=== PATIENT | male | born 1980 | race Hispanic/Latino ===

== ENCOUNTER 2018-08-05 16:45 | Emergency (ER) | payer OTHER, SELFPAY ==
[2018-08-05 17:33] LABS: #Eosinphils 0.1 thou/uL (0.0-0.7); #Lymphocytes 0.6 thou/uL (1.20-3.40); #Monocytes 0.7 thou/uL (0.11-0.59); #Neutrophils 9.6 thou/uL (1.40-6.50); %Basophils 0.4 % (0.0-1.0); %Eosinophils 0.6 % (0.0-10.0); %Lymphocytes 5.7 % (21.0-51.0); %Neutrophils 87.2 % (42.0-75.0); Hemoglobin 14.5 g/dL (14.0-18.0); Mean Corpuscular HGB CONC 33.4 g/dL (32.0-36.0); Mean Corpuscular Hemoglobin 30.7 pg (27.0-31.0); Mean Corpuscular Volume 91.8 fL (78.0-98.0); Mean Platelet Volume 6.5 fL (7.4-10.4); Platelet Count 315 thou/uL (130-400); RBC Distribution Width 12.9 % (11.5-14.5); Red Blood Cell (RBC) Count 4.74 mill/uL (4.70-6.10)
[2018-08-05] MEDS ORDERED: Lorazepam 2 MG/ML VIAL ONE (17:40)
--- NOTE | 2018-08-05 17:44 | CT ---
CT OF THE HEAD 08/05/18 COMPARISON: 03/02/14 HISTORY: Seizures, head injury. TECHNIQUE: Serial axial CT imaging at 5 mm intervals from vertex through skull base without contrast. FINDINGS: The imaged paranasal sinuses and mastoid air cells appear well aerated. No displaced calvarial fractu re noted. No intracranial hemorrhage, midline shift, mass effect, or ventricular enlargement. If there is clini gabriela concern for a seizure focus, followup brain MRI suggested. IMPRESSION: No acute findings. POS: [facility]
--- NOTE | 2018-08-05 17:46 | RAD ---
PORTABLE UPRIGHT FRONTAL CHEST RADIOGRAPH 08/05/18 COMPARISON: 03/02/14. HISTORY: Seizures, pain. FINDINGS: Old mid shaft left clavicle fracture. Lungs are clear. Heart and mediastinal contours are unremarkabl e. IMPRESSION: No acute findings. POS: [facility]
[2018-08-05 17:50] LABS: ALT (SGPT) 19 U/L (8-55); AST (SGOT) 28 U/L (5-34); Albumin 5.1 g/dL (3.5-5.0); Alkaline Phosphatase 94 U/L (40-150); Anion Gap 14 mmol/L (10-20); BUN (Urea Nitrogen) 11 mg/dL (8.9-20.6); Bilirubin, Total 0.4 mg/dL (0.2-1.2); Calc. Creatinine Clearance 0 mL/min (70-130); Calcium 10.2 mg/dL (7.8-10.44); Carbon Dioxide 24 mmol/L (22-29); Chloride 102 mmol/L (98-107); Estimated GFR-MDRD 68; Globulin 3.5 g/dL (2.4-3.5); Glucose 106 mg/dL (70-105); Magnesium 2.7 mg/dL (1.6-2.6); Potassium 4.1 mmol/L (3.5-5.1); Protein, Total 8.6 g/dL (6.0-8.3); Sodium 136 mmol/L (136-145)
[2018-08-05 18:39] LABS: CKMB 7.2 ng/mL (0-6.6); Troponin I Less than 0.010 ng/mL (< 0.028)
[2018-08-05] MEDS ORDERED: Adacel (T-DAP) 0.5 ML VIAL ONE (18:44)
[2018-08-05 18:47] LABS: Bilirubin Negative (Negative); Blood, Urine Trace (Negative); Clarity CLOUDY (Clear); Glucose, Urine (Dipstick) Negative (Negative); Leukocyte Negative (Negative); Nitrite Negative (Negative); Protein, Urine (Dipstick) Negative (Neg-Trace); Specific Gravity, Urine 1.016 (1.002-1.036); Urobilinogen 0.2 mg/dL (0.2-1.0); pH, Urine 5.5 (5.0-9.0)
[2018-08-05 18:49] LABS: Bacteria/HPF None Seen HPF (None Seen); Hyaline Casts/LPF 0-3 HYALINE CAST LPF (0-3 Hyaline); Pathc Cast-AUWi Flag 0.43 (0-2.49); RBC/HPF 0-3 HPF (0-3); Squamous Epithelial 0-3 HPF (0-3); WBC/HPF 0-3 HPF (0-3)
[2018-08-05 18:57] LABS: Amphetamine Not Detected (NotDetected); Barbiturates Screen Detected (NotDetected); Benzodiazepine Screen Not Detected (NotDetected); Cocaine Metabolite Screen Detected (NotDetected); Medtox Reader # READER 1; Methadone Not Detected (NotDetected); Methamphetamine Not Detected (NotDetected); Opiate Screen Not Detected (NotDetected); Phencyclidine (PCP) Not Detected (NotDetected); THC/Cannabinoid Screen Not Detected (NotDetected); Tricyclic Screen Not Detected (NotDetected)
[2018-08-05 18:58] LABS: Medtox Control Line Valid? VALID (VALID); Oxycodone Screen Not Detected (NotDetected)
[2018-08-05 21:47] LABS: CKMB 6.5 ng/mL (0-6.6); Troponin I Less than 0.010 ng/mL (< 0.028)
[2018-08-05] MEDS ORDERED: levETIRAcetam 500 MG TAB PO SCH (22:30)
== END 2018-08-05 22:40 ==
LOC: ERS 16:45
DX: G40.909 Epilepsy, unspecified, not intractable, without status epilepticus (principal); E03.9 Hypothyroidism, unspecified; F17.210 Nicotine dependence, cigarettes, uncomplicated
CPT/HCPCS: 36415; 70450; 71045; 80053; 80306; 81003; 81015; 82553; 83735; 84484; 85025; 90471; 90715; 93005; 96361; 96374; J2060

== ENCOUNTER 2019-07-29 00:54 | Inpatient (IN) | payer OTHER, SELFPAY ==
[2019-07-29 01:50] LABS: #Lymphocytes 0.6 thou/uL (1.20-3.40); #Monocytes 0.8 thou/uL (0.11-0.59); #Neutrophils 11.9 thou/uL (1.40-6.50); %Basophils 0.1 % (0.0-1.0); %Eosinophils 0.3 % (0.0-10.0); %Lymphocytes 4.5 % (21.0-51.0); %Monocytes 5.7 % (0.0-10.0); %Neutrophils 89.4 % (42.0-75.0); Hemoglobin 14.3 g/dL (14.0-18.0); Mean Corpuscular HGB CONC 34.2 g/dL (32.0-36.0); Mean Corpuscular Hemoglobin 30.9 pg (27.0-31.0); Mean Corpuscular Volume 90.4 fL (78.0-98.0); Mean Platelet Volume 6.6 fL (7.4-10.4); Platelet Count 313 thou/uL (130-400); RBC Distribution Width 12.6 % (11.5-14.5); Red Blood Cell (RBC) Count 4.62 mill/uL (4.70-6.10); White Blood Cell (WBC) Count 13.3 thou/uL (4.8-10.8)
[2019-07-29] MEDS ORDERED: cefTRIAXone\\ROCEPHIN 2 GM VIAL ONE (02:12)
[2019-07-29] MEDS ORDERED: Acetaminophen 500 MG TAB ONE (02:12)
[2019-07-29 02:13] LABS: ALT (SGPT) 23 U/L (8-55); AST (SGOT) 33 U/L (5-34); Albumin 5.1 g/dL (3.5-5.0); Alkaline Phosphatase 83 U/L (40-110); Anion Gap 13 mmol/L (10-20); BUN (Urea Nitrogen) 10 mg/dL (8.9-20.6); Bilirubin, Total 0.3 mg/dL (0.2-1.2); Calc. Creatinine Clearance 0 mL/min (70-130); Carbon Dioxide 24 mmol/L (22-29); Chloride 107 mmol/L (98-107); Estimated GFR-MDRD 77; Globulin 3.2 g/dL (2.4-3.5); Glucose 118 mg/dL (70-105); Potassium 4.3 mmol/L (3.5-5.1); Protein, Total 8.3 g/dL (6.0-8.3); Sodium 140 mmol/L (136-145)
[2019-07-29] MEDS ORDERED: Lorazepam 2 MG/ML VIAL ONE (02:29)
[2019-07-29 03:14] LABS: Color Of CSF Supernatant COLORLESS (Colorless); Tube # 2; Unspun CSF Color COLORLESS (Colorless)
[2019-07-29 03:28] LABS: CSF, Glucose 72 mg/dl (40-70); CSF, Protein 37 mg/dL (15-40)
[2019-07-29 03:51] LABS: CSF Source CSF; Clarity Clear (Clear)
[2019-07-29 03:55] LABS: Tube # 1
[2019-07-29 04:06] LABS: Bacteria/HPF None Seen HPF (None Seen); Bilirubin Negative (Negative); Blood, Urine 2+ (Negative); Clarity Turbid (Clear); Glucose, Urine (Dipstick) Normal (Negative); Leukocyte Negative Leu/uL (Negative); Nitrite Negative (Negative); Protein, Urine (Dipstick) 20 mg/dL (Neg-Trace); RBC/HPF 0-3 HPF (0-3); Squamous Epithelial None Seen HPF (0-3); Urobilinogen Normal mg/dL (Less than 2); WBC/HPF 0-3 HPF (0-3)
[2019-07-29 04:22] LABS: Amphetamine Not Detected (NotDetected); Barbiturates Screen Not Detected (NotDetected); Benzodiazepine Screen Not Detected (NotDetected); Cocaine Metabolite Screen Detected (NotDetected); Medtox Control Line Valid? VALID (VALID); Medtox Reader # READER 4; Methadone Not Detected (NotDetected); Methamphetamine Not Detected (NotDetected); Opiate Screen Not Detected (NotDetected); Oxycodone Screen Not Detected (NotDetected); Phencyclidine (PCP) Not Detected (NotDetected); THC/Cannabinoid Screen Not Detected (NotDetected); Tricyclic Screen Not Detected (NotDetected)
[2019-07-29 04:47] LABS: CSF Source CSF; Clarity Clear (Clear); RBC Count - Manual 0 /cumm (None Seen); Tube # 4; WBC/NonHematics Count - Manual 0 /cumm (0-5)
--- NOTE | 2019-07-29 04:50 | PDOC.HHP ---
Hospitalist Results - Labs Result Diagrams: 07/29/19 01:37 07/29/19 01:37 Lab results: WBC 13.3 thou/uL (4.8-10.8) H 07/29/19 01:37 Hgb 14.3 g/dL (14.0-18.0) 07/29/19 01:37 Hct 41.8 % (42.0-52.0) L 07/29/19 01:37 MCV 90.4 fL (78.0-98.0) 07/29/19 01:37 Plt Count 313 thou/uL (130-400) 07/29/19 01:37 Neutrophils % 89.4 % (42.0-75.0) H 07/29/19 01:37 Sodium 140 mmol/L (136-145) 07/29/19 01:37 Potassium 4.3 mmol/L (3.5-5.1) 07/29/19 01:37 Chloride 107 mmol/L (98-107) 07/29/19 01:37 Carbon Dioxide 24 mmol/L (22-29) 07/29/19 01:37 BUN 10 mg/dL (8.9-20.6) 07/29/19 01:37 Creatinine 1.07 mg/dL (0.7-1.3) 07/29/19 01:37 Glucose 118 mg/dL (70-105) H 07/29/19 01:37 Lactic Acid 1.9 mmol/L (0.5-2.2) 07/29/19 02:06 Calcium 10.0 mg/dL (7.8-10.44) 07/29/19 01:37 Total Bilirubin 0.3 mg/dL (0.2-1.2) 07/29/19 01:37 AST 33 U/L (5-34) 07/29/19 01:37 ALT 23 U/L (8-55) 07/29/19 01:37 Alkaline Phosphatase 83 U/L (40-110) 07/29/19 01:37 Ammonia 26 umol/L (18-72) 07/29/19 02:06 Serum Total Protein 8.3 g/dL (6.0-8.3) 07/29/19 01:37 Albumin 5.1 g/dL (3.5-5.0) H 07/29/19 01:37 Urine Ketones Trace mg/dL (Negative) A 07/29/19 03:36 Urine Blood 2+ (Negative) A 07/29/19 03:36 Urine Nitrite Negative (Negative) 07/29/19 03:36 Ur Leukocyte Esterase Negative Teresa/uL (Negative) 07/29/19 03:36 Urine RBC 0-3 HPF (0-3) 07/29/19 03:36 Urine WBC 0-3 HPF (0-3) 07/29/19 03:36 Ur Squamous Epith Cells None Seen HPF (0-3) 07/29/19 03:36 Urine Bacteria None Seen HPF (None Seen) 07/29/19 03:36
[2019-07-29] MEDS ORDERED: Ondansetron ODT 4 MG TAB SL PRN (05:57)
[2019-07-29] MEDS ORDERED: Ondansetron PF 4 MG/2 ML Vial IVP PRN (05:57)
[2019-07-29] MEDS ORDERED: HYDROcodone/Acetaminophen 5/325 mg Tablet PO PRN ×2 (05:57)
[2019-07-29] MEDS ORDERED: Acetaminophen 325 MG TAB PO PRN ×2 (05:57→08:42)
[2019-07-29 06:43] VITALS: BMI 21.8
--- NOTE | 2019-07-29 07:55 | CT ---
PRELIMINARY REPORT/[facility]/EMERGENCY AFTER HOURS PROCEDURE PROCEDURE INFORMATION: Exam: CT Head Without Contrast Exam date and time: 07/29/2019 1:42 AM Clinical history: 38 years old, male; Condition or disease; Convulsions or seizures; Patient HX: 38 y ear old male presents to the ED in correction custody C/O possible seizure-like activity. Approx. 2150 cheli ent started experiencing seizure-like activity, but had returned to baseline by the time he was broug ht to medical. Same thing occurred 2 hours later. No seizure witnessed by staff, but other inmates wi tnessed the seizure. Unknown quality of seizure. Patient unable to report fall or potential head inju ry. Patient reports h/o seizures, takes clonazepam 2mg but has not received medications since being incarcerated yesterday for alcohol intoxication. C/O left hip pain but chronic in nature per patient. TECHNIQUE: Imaging protocol: Computed tomography of the head without contrast. COMPARISON: No relevant prior studies available. FINDINGS: Brain: No hemorrhage. No significant white matter disease. No edema. Ventricles: No ventriculomegaly. Bones/joints: Unremarkable. No acute fracture. Sinuses: Visualized sinuses are unremarkable. No fluid levels. Mastoid air cells: Visualized mastoid air cells are well aerated. Soft tissues: Unremarkable. IMPRESSION: No acute intracranial abnormality. Thank you for allowing us to participate in the care of your patient. Dictated and Authenticated by: Shanique Isaac MD 07/29/2019 1:52 AM Central Time ([place] & [place]) FINAL REPORT I agree with the preliminary report provided. No acute intracranial abnormality. CODE QA POS:
--- NOTE | 2019-07-29 09:29 | RAD ---
Chest one view HISTORY: Fever. Seizure. COMPARISON: 08/05/2018. FINDINGS: Cardiac silhouette and pulmonary vasculature are unremarkable. Mediastinum is midline. Calc ification at the aorta. No confluent airspace consolidation or evidence of pneumothorax. Old left clavicle fracture. IMPRESSION: No active cardiopulmonary abnormalities are demonstrated.
[2019-07-29] MEDS: clonazePAM 0.5 MG TAB PO SCH ×2 (09:52→21:36)
[2019-07-29 10:42] LABS: Alcohol Less than 10 mg/dL (Less than 10); CK (CPK) 769 U/L (30-200)
--- NOTE | 2019-07-29 14:41 | HP ---
CHIEF COMPLAINT: Seizure. HISTORY OF PRESENT ILLNESS: This patient is a 38-year-old male, who is incarcerated at the the [facility] as of last night. The patient has been seen in this facility in the past. In the emergency department on 4 different occasions, going back to 2013 for possible seizure activity. The patient has reported history of seizures going back to the age of 13. He indicates that he gets his medications at [facility] and that his only medication for seizures is clonazepam. He states that it works fine and he never had seizures until he goes to [facility] and is not getting his medications. Apparently, the patient had seizures witnessed by inmates at the [facility] last evening after incarceration and was subsequently brought to the emergency department. The patient cannot give much more information and the only witnesses were the other inmates. This appears to be consistent with the pattern of previous evaluations as well. Currently, the patient appears somewhat delayed and his responsiveness history is considered to be questionably reliable. REVIEW OF SYSTEMS: The patient does report having a sore throat and some sinus congestion, but otherwise the best I can tell, all other systems reviewed were negative except for those things mentioned in the history of present illness. PAST MEDICAL HISTORY: Only notable for the seizure disorder. PAST SURGICAL HISTORY: None. SOCIAL HISTORY: The patient is not . He denies tobacco. He says he drinks alcohol, but has not drank in over a week and only drinks occasionally. He also denies using drugs, although his drug screen is positive for cocaine and it was back in July as well. He is full code. CURRENT MEDICATIONS: Clonazepam 0.5 mg b.i.d. ALLERGIES: NONE. PHYSICAL EXAMINATION: VITAL SIGNS: Temperature is 98.2, pulse 82, respirations 16, O2 saturation 96% on room air, and blood pressure 116/63. GENERAL APPEARANCE: Age-appropriate male. He is in no distress. He is somewhat delayed in his responses. This is both true when conversing with him in Pashto and in Mozambican. He does have sounds of some sinus congestion when speaking and did sneeze once during the exam. HEENT: His pupils are dilated and sluggishly responsive to light challenge. He has no specific OP lesions. Very slight posterior pharyngeal erythema. NECK: Supple and symmetric. HEART: Regular rate and rhythm. LUNGS: Clear bilaterally with no wheezes, rales, or rhonchi. ABDOMEN: Soft, nontender, and nondistended. Positive bowel sounds. No masses. No organomegaly. EXTREMITIES: No cyanosis, clubbing, or edema. SKIN: Reveals several small ecchymotic areas around the neck and upper chest consistent with hickeys. NEURO: The patient again has some delay in interaction that is able to move all extremities spontaneously. He has normal strength. LABORATORY DATA: White count 13.3, hemoglobin 14.3, and platelets 313. Sodium 140, potassium 4.3, chloride 107, BUN 10, creatinine is 1.07, glucose 118, lactic acid 1.9, calcium 10.0, AST 33, ALT 23. Ammonia level is 26. Albumin is 5.1. Urinalysis is turbid with 2+ blood, but only 0 to 3 red cells, 3+ uric acid crystals. CSF appears normal. Urine drug screen positive for cocaine. Brain CT is unremarkable. EKG showed incomplete right bundle-branch block. IMPRESSION AND PLAN: 1. Possible seizure activity. This patient's history unfortunately is difficult and that he tends to only claim to have seizures when he is arrested and not getting his medications at the [facility]. However, he was only very briefly in the [facility] before these seizure episodes started. He is positive for cocaine and he has normal prolactin levels, so it makes the confirmation of the diagnosis very challenging. It appears as though he has come to the hospital reporting seizures when being in police custody in the past as well, so there is certainly the potential for some secondary gain. It is also unusual that half a mg of Klonopin b.i.d. would be substantial treatment for a chronic seizure disorder. However, I have no way to confirm that right now it does appear on the outpatient pharmacy interface that the patient did feel Klonopin 0.5 mg b.i.d. #60 on 07/18/2019. We will go ahead and resume those. I am also going to check a CK level given the positivity for blood and lack of red blood cells in the urine sample. 2. Encephalopathy, unclear if the patient is intoxicated with cocaine versus being postictal. Also going to check an alcohol level. 3. Febrile illness. We will check a chest x-ray and check a viral panel as it appears as though the patient may simply have a cold or rhinovirus. However, he does have slight leukocytosis, which could be related to seizure as well. In the meantime, we will continue Rocephin. His CSF on a spinal tap appeared to be normal. Therefore, we will not continue vancomycin at this time. 4. Cocaine abuse. The patient has positive cocaine tox screen and had it back in July as well. Therefore, I suspect it is likely real and accurate. We will continue to monitor that. Job ID: [id number]
--- NOTE | 2019-07-29 15:59 | CON ---
DATE OF CONSULTATION: CHIEF COMPLAINT: Possible seizures. HISTORY OF PRESENT ILLNESS: The patient is unable to give us much history. Based on the history in the chart plus the officer who is with him, the patient is known to have seizures. Every time he goes to the [facility], they have noticed he has seizures, even in 2013. He has been seen here as well at our hospital in the past. He has history of seizures since age 13. He is on clonazepam per chart and he takes it. He apparently told the physicians earlier that it works well and he never had seizures until he goes to [facility] and is not getting his medication. The officer who was present in the room was not the one who witnessed seizures, but he said several witnesses saw him have seizures and it is a consistent pattern. He has been confused since admission and he has delayed responsiveness. PREVIOUS MEDICAL HISTORY: Seizure disorder. PAST SURGICAL HISTORY: None. SOCIAL HISTORY: He is not . Nonsmoker. He drinks alcohol and also uses drugs. MEDICATIONS: At home, clonazepam 0.5 mg b.i.d. ALLERGIES: NONE. REVIEW OF SYSTEMS: PULMONARY: Negative for cough or shortness of breath. GI: Negative for nausea, vomiting, or diarrhea. CARDIAC: Negative for chest pain or palpitations. OPHTHALMOLOGIC: Negative for any blurred vision. NEUROLOGIC: Positive for seizures. LABORATORY DATA: White count 13.3, hemoglobin 14.3, hematocrit 41.8, and platelet count 313. Chemistry; sodium 140, potassium 4.3, chloride 107, bicarb 24, BUN 10, creatinine 1.07, and glucose 118. Prolactin 7.10. CSF is clear and colorless fluid and 0 white cells, 0 red cells, glucose 72, protein 37. Urine toxicology is positive for cocaine and his head CT was completed and CT of the head does not show any intracranial abnormalities. PHYSICAL EXAMINATION: VITAL SIGNS: The patient's temperature 98.2, pulse 82, respiratory rate 16, O2 saturations 96, and blood pressure 116/63. CHEST: Clear vesicular breathing. CARDIOVASCULAR: S1 and S2 heard. No murmurs. ABDOMEN: Soft. NEUROLOGIC: He is quite slow in responding to question, was oriented to month and year and there was definitely delay in responsiveness to any questions. Cranial nerves 2 through 12 normal extraocular movements. Pupils 3 mm bilaterally, reactive to light. Tongue midline. No atrophy noted. Normal sensation of face. Normal elevation of palate. Normal hearing to finger rub bilaterally. Motor bulk normal. Tone normal. Strength 5/5 throughout in iliopsoas, hamstrings, quadriceps, ankle dorsiflexion, plantar flexion, deltoid, biceps, triceps, wrist extension and flexion, finger extension and flexion bilaterally and sensory normal to touch bilaterally. Deep tendon reflexes were 1+ throughout and cerebellar, normal [id number] and [id number]. IMPRESSION: The patient is a 38-year-old man, who has a long history of seizures and is being treated with clonazepam. He apparently has seizures whenever he goes to [facility] and since he is not getting his medication per his chart, his examination is normal. It is difficult to tell if this is a withdrawal seizure from clonazepam versus generalized tonic-clonic seizure. No witnessed account is available. RECOMMENDATIONS: For now, add Keppra 500 mg b.i.d. and make sure the patient is compliant with this and has a followup with Dr. George. Job ID: [id number]
[2019-07-30] MEDS ORDERED: cefTRIAXone\\ROCEPHIN 2 GM in Sodium Chloride 0.9% 100 ML IVPB SCH (02:00)
[2019-07-30 05:07] LABS: #Eosinphils 0.4 thou/uL (0.0-0.7); #Lymphocytes 1.4 thou/uL (1.20-3.40); #Monocytes 1.1 thou/uL (0.11-0.59); #Neutrophils 7.1 thou/uL (1.40-6.50); %Basophils 0.5 % (0.0-1.0); %Eosinophils 3.5 % (0.0-10.0); %Lymphocytes 13.7 % (21.0-51.0); %Neutrophils 71.4 % (42.0-75.0); Hemoglobin 14.5 g/dL (14.0-18.0); Mean Corpuscular HGB CONC 33.4 g/dL (32.0-36.0); Mean Corpuscular Hemoglobin 30.7 pg (27.0-31.0); Mean Corpuscular Volume 91.7 fL (78.0-98.0); Mean Platelet Volume 6.8 fL (7.4-10.4); Platelet Count 278 thou/uL (130-400); RBC Distribution Width 12.5 % (11.5-14.5); Red Blood Cell (RBC) Count 4.72 mill/uL (4.70-6.10)
[2019-07-30] MEDS: clonazePAM 0.5 MG TAB PO SCH (09:02)
[2019-07-30 11:57] VITALS: BP 112/71; TEMP 99.7
--- NOTE | 2019-07-31 09:50 | DIS ---
DATE OF ADMISSION: 07/29/2019 DATE OF DISCHARGE: 07/30/2019 PRIMARY CARE PHYSICIAN: aVnessa Garrido. DISCHARGE DISPOSITION: Home. FOLLOWUP: 1. Follow up with primary care physician, Vanessa Garrido in 1 week. 2. Follow up with Neurology, Dr. Darin George in 2 weeks. INSTRUCTIONS: Seizure precautions were emphasized. He was advised no driving or operating heavy machinery until cleared by MD. ALLERGIES: NO KNOWN DRUG ALLERGIES. DISCHARGE MEDICATIONS: 1. Keppra 500 mg b.i.d. 2. The patient will resume clonazepam 0.5 mg b.i.d. INPATIENT CONSULT: Neurology, Dr. Mckinney. BRIEF HOSPITAL COURSE: The patient is a 38-year-old male, who presented to the hospital after an episode of seizure. Please refer to the history and physical for further details. The patient was admitted to the hospital with a diagnosis of seizure, probably secondary to sudden discontinuation of clonazepam. He was monitored in the stroke unit. He was started on Keppra per Neurology. His urine drug screen was positive for cocaine. His alcohol level was less than 10. He underwent lumbar puncture that showed CSF total protein of 37, glucose of 72 without any white blood cell. His urine studies were normal. His WBC count on admission was 13.3; however, next day, it was normal at 10.0. Lifestyle modification including drug cessation was emphasized. Blood cultures were negative. His respiratory viral panel was positive for rhinovirus. He appears stable for discharge. FINAL DIAGNOSES: 1. Seizure, multifactorial. 2. Sepsis secondary to rhinovirus infection. 3. Cocaine abuse. 4. History of heavy alcohol abuse. The patient was advised to start thiamine, folic acid, and multivitamin [id number]. 5. Chronic kidney disease, stage 2. 6. Elevated CK at 769. The patient was advised to maintain adequate oral intake. A repeat CK and basic metabolic profile after 1 week are recommended. Primary care physician advised to follow. 7. Metabolic encephalopathy secondary to seizure, multifactorial. 8. Plan was discussed with the patient in detail. He stated understanding. Job ID: [id number]
--- NOTE | 2019-08-01 03:57 | PQF ---
[facility] [employer] Chair [employer] Winform Viewer GIL WILLETT MALIK MD [id number] CLINICAL DOCUMENTATION CLARIFICATION FORM: POST DISCHARGE Addendum to original discharge summary date: ____ Late entry note date: __ DATE: 08/01/19 ATTN: Bishop Peterson Please exercise your independent, professional judgment in responding to the clarification form. Clinical indicators are provided on the bottom of this form for your review Can you please further specify the etiology of Seizure based on the clinical indicators below? Please check appropriate box(s): [ ] Seizure due to Sepsis [ ] Seizure due to cannabis abuse [ ] Seizure due to alcohol abuse [ ] Seizure disorder of unknown etiology [ ] Other diagnosis please specify [ x] Unable to determine In addition, please specify: Present on Admission (POA): [ ] Yes [ ] No [ ] Unable to determine For continuity of documentation, please document condition throughout progress notes and discharge summary. Thank You. CLINICAL INDICATORS - SIGNS / SYMPTOMS / LABS DS pg2 07/31 Dr. Sidhu- seizure, multifactorial DS pg1 07/31 Dr. Sidhu- seizure, probably secondary to sudden discontinuation of clonazepam withdrawal seizure from clonazepam versus generalized tonic-clonic seizure Consult pg2 07/29 Dr. Mckinney- withdrawal seizure from clonazepam versus generalized tonic-clonic seizure RISK FACTORS hx of heavy alcohol abuse-DS 07/31 Dr. Sidhu cocaine abuse- H&P 07/29 Dr. Tripathi Anxiety-H&P 07/29 Dr. Tripathi TREATMENTS: Neurology Consult- Consult 07/[address]- 07/29 Dr. Hdz IV Vancomycin- JAN 06 IV Levetiracetam- JAN 06 IV Fluids- JAN 06 (This form is maintained as a part of the permanent medical record) 2014 [employer]. All Rights Reserved Adonis [not provided] MTDD
== END 2019-07-30 16:23 | disposition home or self-care (01) | DRG 100 ==
LOC: ERS 00:54 → 2SE 04:23
PROVIDERS: ADMIT Internal Medicine; ATTEND Internal Medicine
DX: G40.909 Epilepsy, unspecified, not intractable, without status epilepticus (principal); G93.41 Metabolic encephalopathy; A41.89 Other specified sepsis; F14.10 Cocaine abuse, uncomplicated; E03.9 Hypothyroidism, unspecified; F41.9 Anxiety disorder, unspecified; B97.89 Other viral agents as the cause of diseases classified elsewhere; N18.2 Chronic kidney disease, stage 2 (mild); F10.10 Alcohol abuse, uncomplicated; Z91.14 Patient's other noncompliance with medication regimen; Z79.899 Other long term (current) drug therapy
CPT/HCPCS: 36415; 62270; 70450; 71045; 80053; 80306; 80307; 81003; 81015; 82140; 82550; 82945; 83605; 84146; 84157; 85025; 87040; 87070; 87205; 87633; 89051; 93005; 96365; 96367; 96375; J0696; J1953; J2060; J3370; J3490